=== PATIENT | male | born 1990 | race African-American/Black ===

== ENCOUNTER 2022-11-17 12:35 | Emergency (ER) | payer SELFPAY ==
[2022-11-17] MEDS ORDERED: Ketorolac Tromethamine 30 MG/ML VIAL ONE (14:11)
== END 2022-11-17 15:04 | disposition home or self-care (01) ==
LOC: ERS 12:35
DX: G89.29 Other chronic pain (principal); M54.50 Low back pain, unspecified; F17.210 Nicotine dependence, cigarettes, uncomplicated
CPT/HCPCS: 96372; 99283; J1885

== ENCOUNTER 2023-05-15 09:23 | Outpatient (CLI) | payer OTHER | END 2023-05-15 09:24 | disposition home or self-care (01) | LOC: SCSRAD 09:23 | PROVIDERS: ATTEND Nurse Practitioner Family | DX: M54.42 Lumbago with sciatica, left side (principal) | CPT/HCPCS: 72100 ==